=== PATIENT | female | born 1965 | race Caucasian/White ===

== ENCOUNTER 2017-07-29 23:46 | Emergency (ER) | payer OTHER ==
[~2017-07-29] VITALS: Ht 154.9 cm; Wt 102.8 kg
[2017-07-30] MEDS ORDERED: ondansetron/PF 4mg/2ml inj IV ONE (00:45)
[2017-07-30] MEDS ORDERED: normal saline 1000ML IV soln IVB ONE (00:45)
[2017-07-30] MEDS ORDERED: HYDR-565 PO (00:48)
[2017-07-30 01:20] LABS: CLARITY,URINE CLEAR (Clear); COLOR,URINE ORANGE (Yellow); PH,URINE 7.5 (4.8-8.0)
[2017-07-30 01:24] LABS: UA COLLECTION TYPE CLN CATCH MIDSTREAM
[2017-07-30 01:42] LABS: BACTERIA,URINE FEW /HPF (Neg); RBC,URINE NONE SEEN /HPF (0-2); SQUAMOUS EPITHELIAL CELL,UR FEW /LPF (FEW); WBC,URINE 0-4 /HPF (0-4)
[2017-07-30 01:50] VITALS: BP 130/75
== END 2017-07-30 01:56 | disposition home or self-care (01) ==
LOC: ER 23:47
DX: N10 Acute pyelonephritis (principal); Z87.440 Personal history of urinary (tract) infections; Z98.890 Other specified postprocedural states; Z88.2 Allergy status to sulfonamides
CPT/HCPCS: 81001; 96374; 96375; 99284; J2270; J2405; J7030

== ENCOUNTER 2017-09-21 08:55 | Inpatient (IN) | payer OTHER ==
[~2017-09-21] VITALS: Ht 154.9 cm; Wt 95.5 kg
[2017-09-21] MEDS ORDERED: morphine 8mg/ml inj. syringe IV PRN (09:15)
[2017-09-21] MEDS ORDERED: ondansetron/PF 4mg/2ml inj IV ONE (09:15)
[2017-09-21] MEDS ORDERED: ketorolac trometh. 30mg/ml inj. IV ONE (09:15)
[2017-09-21] MEDS: morphine 4 MG/ML inj SYRINge IV PRN ×3 (09:41→16:32)
[2017-09-21 10:06] LABS: BASOPHILS % (AUTO) 0.1 % (0-1); EOSINOPHILS # (AUTO) 0.4 X10'3 (0-0.9); EOSINOPHILS % (AUTO) 2.1 % (0-6); HEMOGLOBIN 14.3 g/dl (12.0-16.0); LYMPHOCYTES # (AUTO) 0.7 X10'3 (1.1-4.8); LYMPHOCYTES % (AUTO) 4.1 % (21-51); MEAN CORPUSCULAR HEMOGLOBIN 31.2 PG (27.0-31.0); MEAN CORPUSCULAR VOLUME 89.2 FL (78-98); MEAN PLATELET VOLUME 9.4 FL (7.4-10.4); MONOCYTES # (AUTO) 0.4 X10'3 (0-0.9); MONOCYTES % (AUTO) 2.5 % (2-12); NEUTROPHILS % (AUTO) 91.2 % (42-75); PLATELET COUNT 225 X10'3 (140-440); RED CELL DISTRIBUTION WIDTH 13.3 % (11.5-14.5); WHITE BLOOD COUNT 17.6 X10'3 (4.5-11.0)
[2017-09-21 10:15] LABS: PROTHROMBIN TIME 10.5 SECONDS (9.0-12.0)
[2017-09-21 10:17] LABS: HCG SERUM QL NEGATIVE
[2017-09-21 10:59] LABS: ALANINE AMINOTRANSFERASE 850 U/L (12-78); ALBUMIN 3.6 G/DL (3.4-5.0); ALKALINE PHOSPHATASE 552 IU/L (46-116); ANION GAP 16 (8-16); ASPARTATE AMINO TRANSFERASE 409 U/L (10-37); BILIRUBIN,TOTAL 3.1 MG/DL (0.1-1.0); BLOOD UREA NITROGEN 13 MG/DL (7-18); BUN/CREATININE RATIO 14.4 (6.6-38.0); CALCIUM 8.9 MG/DL (8.5-10.1); CHLORIDE 104 MMOL/L (99-107); GLUCOSE 178 MG/DL (70-104); POTASSIUM 3.8 MMOL/L (3.5-5.1); SODIUM 140 MMOL/L (135-145); TOTAL CARBON DIOXIDE 20.5 MMOL/L (24-32); TOTAL PROTEIN 7.1 G/DL (6.4-8.2); eGFR 66 ML/MIN
[2017-09-21 11:12] LABS: AMYLASE 2371 U/L (25-115)
[2017-09-21 11:23] LABS: CLARITY,URINE CLOUDY (Clear); COLOR,URINE YELLOW (Yellow); GLUCOSE, URINE NEGATIVE (Neg); KETONES,URINE >=80 mg/dl (Neg); LEUKOCYTE ESTERASE ,URINE TRACE (Neg); NITRITES, URINE NEGATIVE (Neg); OCCULT BLOOD,URINE SMALL (Neg); PROTEIN,URINE TRACE mg/dl (Neg); URINE HCG NEGATIVE (NEG)
[2017-09-21 11:23] LABS: LIPASE > 30000 U/L (73-393)
[2017-09-21 11:28] LABS: UA COLLECTION TYPE CLN CATCH MIDSTREAM
[2017-09-21 11:32] LABS: RBC,URINE 0-2 /HPF (0-2)
[2017-09-21 11:33] LABS: BACTERIA,URINE 2+ /HPF (Neg); MUCUS STRANDS MODERATE /LPF (Neg); SQUAMOUS EPITHELIAL CELL,UR MANY /LPF (FEW)
[2017-09-21 11:57] LABS: BANDS% (MANUAL) 2 % (0-10); LYMPHOCYTES % (MANUAL) 3 % (21-51); MONOCYTES % (MANUAL) 4 % (2-12); NEUTROPHILS % (MANUAL) 91 % (42-75); TOTAL CELLS COUNTED 100
[2017-09-21 11:58] LABS: PLATELET ESTIMATE NORMAL; TOXIC VACUOLATION 1+
[2017-09-21] MEDS ORDERED: HYDROmorphone inj. 0.5 MG/0.5 ML DISP.SYRIN IV PRN ×2 (13:20)
[2017-09-21] MEDS ORDERED: mag hydrox/Alum hydrox/simeth 30ml oral suspension PO PRN (13:20)
[2017-09-21] MEDS ORDERED: magnesium hydroxide 30ml (MOM) UD suspension PO PRN (13:20)
[2017-09-21] MEDS: potassium cl 20mEq in 1/2 NS 1,000 ML IV SCH (16:33)
[2017-09-21] MEDS ORDERED: NO HOME MEDS (17:47)
[2017-09-21] MEDS: docusate sod 100mg capsule PO SCH (19:58)
[2017-09-21 23:30] VITALS: BP 154/89
[2017-09-22] MEDS: potassium cl 20mEq in 1/2 NS 1,000 ML IV SCH ×3 (03:00→19:18)
[2017-09-22 05:34] LABS: BASOPHILS % (AUTO) 0.3 % (0-1); EOSINOPHILS # (AUTO) 0.3 X10'3 (0-0.9); EOSINOPHILS % (AUTO) 2.2 % (0-6); HEMATOCRIT 39.2 % (35.0-45.0); HEMOGLOBIN 13.7 g/dl (12.0-16.0); LYMPHOCYTES # (AUTO) 1.1 X10'3 (1.1-4.8); LYMPHOCYTES % (AUTO) 9.6 % (21-51); MEAN CORPUSCULAR HEMOGLOBIN 31.2 PG (27.0-31.0); MEAN CORPUSCULAR HGB CONC 34.9 % (33.0-36.5); MEAN CORPUSCULAR VOLUME 89.3 FL (78-98); MEAN PLATELET VOLUME 9.4 FL (7.4-10.4); MONOCYTES # (AUTO) 0.6 X10'3 (0-0.9); MONOCYTES % (AUTO) 5.2 % (2-12); NEUTROPHILS # (AUTO) 9.8 X10'3 (1.8-7.7); NEUTROPHILS % (AUTO) 82.7 % (42-75); PLATELET COUNT 221 X10'3 (140-440); RED BLOOD COUNT 4.39 X10'6 (4.20-5.60); RED CELL DISTRIBUTION WIDTH 13.2 % (11.5-14.5); WHITE BLOOD COUNT 11.9 X10'3 (4.5-11.0)
[2017-09-22 05:56] LABS: ALANINE AMINOTRANSFERASE 651 U/L (12-78); ALBUMIN 3.2 G/DL (3.4-5.0); ALBUMIN/GLOBULIN RATIO 0.9 (1.1-1.5); ALKALINE PHOSPHATASE 502 IU/L (46-116); ANION GAP 11 (8-16); ASPARTATE AMINO TRANSFERASE 193 U/L (10-37); BILIRUBIN,TOTAL 2.2 MG/DL (0.1-1.0); BLOOD UREA NITROGEN 10 MG/DL (7-18); CALCIUM 8.3 MG/DL (8.5-10.1); CHLORIDE 105 MMOL/L (99-107); CREATININE 0.77 MG/DL (0.40-0.90); GLUCOSE 86 MG/DL (70-104); POTASSIUM 4.2 MMOL/L (3.5-5.1); SODIUM 142 MMOL/L (135-145); TOTAL CARBON DIOXIDE 26.4 MMOL/L (24-32); TOTAL PROTEIN 6.6 G/DL (6.4-8.2); eGFR 79 ML/MIN
[2017-09-22 06:34] LABS: LIPASE 12246 U/L (73-393)
[2017-09-22 07:00] VITALS: BP 142/89
[2017-09-22] MEDS: docusate sod 100mg capsule PO SCH ×2 (07:42→20:00)
[2017-09-22] MEDS: enoxaparin 40mg/0.4ml syringe SUBCUT SCH (09:06)
[2017-09-22] MEDS: ondansetron/PF 4mg/2ml inj IV PRN ×2 (11:15→20:31)
[2017-09-22] MEDS: morphine 4 MG/ML inj SYRINge IV PRN ×4 (14:03→22:40)
[2017-09-22 20:00] VITALS: BP 149/88
[2017-09-22] MEDS: diphenhydrAMINE 50 mg/ml inj IV PRN (20:27)
[2017-09-22 23:00] VITALS: BP 146/89
[2017-09-23] MEDS: potassium cl 20mEq in 1/2 NS 1,000 ML IV SCH ×3 (01:04→23:20)
[2017-09-23] MEDS: acetaminophen 325mg tablet PO PRN ×3 (01:07→18:22)
[2017-09-23 04:00] VITALS: BP 124/75
[2017-09-23 06:18] LABS: BASOPHILS % (AUTO) 0 % (0-1); EOSINOPHILS % (AUTO) 0.1 % (0-6); HEMATOCRIT 39.2 % (35.0-45.0); HEMOGLOBIN 13.6 g/dl (12.0-16.0); MEAN CORPUSCULAR HEMOGLOBIN 30.9 PG (27.0-31.0); MEAN CORPUSCULAR HGB CONC 34.6 % (33.0-36.5); MEAN CORPUSCULAR VOLUME 89.2 FL (78-98); MEAN PLATELET VOLUME 9.9 FL (7.4-10.4); MONOCYTES % (AUTO) 5.8 % (2-12); NEUTROPHILS # (AUTO) 14.9 X10'3 (1.8-7.7); NEUTROPHILS % (AUTO) 88.1 % (42-75); PLATELET COUNT 223 X10'3 (140-440); RED CELL DISTRIBUTION WIDTH 13.3 % (11.5-14.5); WHITE BLOOD COUNT 16.9 X10'3 (4.5-11.0)
[2017-09-23 06:41] LABS: ALANINE AMINOTRANSFERASE 534 U/L (12-78); ALBUMIN/GLOBULIN RATIO 0.9 (1.1-1.5); ALKALINE PHOSPHATASE 541 IU/L (46-116); ANION GAP 12 (8-16); ASPARTATE AMINO TRANSFERASE 154 U/L (10-37); BILIRUBIN,TOTAL 6.6 MG/DL (0.1-1.0); BLOOD UREA NITROGEN 7 MG/DL (7-18); BUN/CREATININE RATIO 11.3 (6.6-38.0); CALCIUM 8.5 MG/DL (8.5-10.1); CHLORIDE 102 MMOL/L (99-107); CREATININE 0.62 MG/DL (0.40-0.90); GLUCOSE 70 MG/DL (70-104); POTASSIUM 4.4 MMOL/L (3.5-5.1); SODIUM 138 MMOL/L (135-145); TOTAL CARBON DIOXIDE 23.8 MMOL/L (24-32); TOTAL PROTEIN 6.5 G/DL (6.4-8.2); eGFR > 90 ML/MIN
[2017-09-23 07:01] LABS: LIPASE 5701 U/L (73-393)
[2017-09-23 08:00] VITALS: BP 143/82
[2017-09-23] MEDS: enoxaparin 40mg/0.4ml syringe SUBCUT SCH (08:00)
[2017-09-23] MEDS: docusate sod 100mg capsule PO SCH ×2 (08:00→20:00)
[2017-09-23 10:26] VITALS: BP 148/86
[2017-09-23 11:00] VITALS: BP 129/80
[2017-09-23 12:51] VITALS: BP 142/88
[2017-09-23] MEDS: ondansetron/PF 4mg/2ml inj IV PRN (17:43)
[2017-09-23] MEDS: morphine 4 MG/ML inj SYRINge IV PRN ×2 (18:22→23:31)
[2017-09-23 20:00] VITALS: BP 128/84
[2017-09-23] MEDS: diphenhydrAMINE 50 mg/ml inj IV PRN (23:30)
[2017-09-23] MEDS: piperacillin/tazo 3.375gm/50ml 50 ML IV SCH (23:31)
[2017-09-24] VITALS (12 sets, daily range): BP systolic 110–157; BP diastolic 73–97
[2017-09-24 05:44] LABS: BASOPHILS # (AUTO) 0.1 X10'3 (0-0.2); BASOPHILS % (AUTO) 0.5 % (0-1); EOSINOPHILS # (AUTO) 0.2 X10'3 (0-0.9); EOSINOPHILS % (AUTO) 1.1 % (0-6); HEMATOCRIT 40.5 % (35.0-45.0); HEMOGLOBIN 13.9 g/dl (12.0-16.0); LYMPHOCYTES % (AUTO) 6.2 % (21-51); MEAN CORPUSCULAR HEMOGLOBIN 30.6 PG (27.0-31.0); MEAN CORPUSCULAR HGB CONC 34.2 % (33.0-36.5); MEAN CORPUSCULAR VOLUME 89.3 FL (78-98); MEAN PLATELET VOLUME 9.6 FL (7.4-10.4); MONOCYTES # (AUTO) 1.1 X10'3 (0-0.9); MONOCYTES % (AUTO) 6.9 % (2-12); NEUTROPHILS # (AUTO) 13.7 X10'3 (1.8-7.7); NEUTROPHILS % (AUTO) 85.3 % (42-75); PLATELET COUNT 237 X10'3 (140-440); RED BLOOD COUNT 4.54 X10'6 (4.20-5.60); RED CELL DISTRIBUTION WIDTH 13.5 % (11.5-14.5)
[2017-09-24] MEDS ORDERED: fentaNYL/PF 50MCG/1 ML 2ML syringe ONE (06:18)
[2017-09-24] MEDS ORDERED: MIDAZolam 5mg/ml 2ml vial ONE (06:18)
[2017-09-24] MEDS ORDERED: diphenhydrAMINE 50 mg/ml inj ONE (06:18)
[2017-09-24] MEDS ORDERED: meperidine/PF 100mg/ml syringe ONE (06:18)
[2017-09-24] MEDS ORDERED: glucagon, human recombinant 1mg kit ONE (06:19)
[2017-09-24] MEDS ORDERED: iohexol 300 MG/1 ML 50ml polymer ONE (06:19)
[2017-09-24] MEDS ORDERED: LIDOcaine Viscous 15ml cup ONE (06:19)
[2017-09-24] MEDS ORDERED: levoFLOXACIN-Levaquin 500mg/D5 0 ML IV ONE (06:19)
[2017-09-24 06:22] LABS: ALANINE AMINOTRANSFERASE 483 U/L (12-78); ALBUMIN/GLOBULIN RATIO 0.7 (1.1-1.5); ALKALINE PHOSPHATASE 513 IU/L (46-116); ANION GAP 13 (8-16); ASPARTATE AMINO TRANSFERASE 150 U/L (10-37); BILIRUBIN,TOTAL 3.9 MG/DL (0.1-1.0); BLOOD UREA NITROGEN 6 MG/DL (7-18); BUN/CREATININE RATIO 9.1 (6.6-38.0); CALCIUM 8.7 MG/DL (8.5-10.1); CHLORIDE 100 MMOL/L (99-107); CREATININE 0.66 MG/DL (0.40-0.90); GLUCOSE 77 MG/DL (70-104); POTASSIUM 4.7 MMOL/L (3.5-5.1); SODIUM 136 MMOL/L (135-145); TOTAL CARBON DIOXIDE 22.9 MMOL/L (24-32); TOTAL PROTEIN 7.1 G/DL (6.4-8.2); eGFR > 90 ML/MIN
[2017-09-24 06:24] LABS: LIPASE 1864 U/L (73-393)
[2017-09-24] MEDS: docusate sod 100mg capsule PO SCH ×2 (06:25→19:22)
[2017-09-24] MEDS ORDERED: normal saline 1000ml 1,000 ML IV SCH (06:57)
[2017-09-24] MEDS ORDERED: simethicone 40mg/0.6ml oral drops 30ml MC ONE (07:00)
[2017-09-24] MEDS ORDERED: fentaNYL/PF 50MCG/1 ML 2ML syringe IV PRN (07:00)
[2017-09-24] MEDS ORDERED: LIDOcaine Viscous 15ml cup PO ONE (07:00)
[2017-09-24] MEDS ORDERED: meperidine/PF 100mg/ml syringe IV PRN (07:00)
[2017-09-24] MEDS ORDERED: diphenhydrAMINE 50 mg/ml inj IV ONE (07:00)
[2017-09-24] MEDS ORDERED: glucagon, human recombinant 1mg kit IV PRN (07:00)
[2017-09-24] MEDS ORDERED: iohexol 300 MG/1 ML 50ml polymer IV ONE (07:00)
[2017-09-24] MEDS ORDERED: MIDAZolam 5mg/5ml vial IV PRN (07:00)
[2017-09-24] MEDS: piperacillin/tazo 3.375gm/50ml 50 ML IV SCH ×2 (08:56→16:15)
[2017-09-24] MEDS: enoxaparin 40mg/0.4ml syringe SUBCUT SCH (08:58)
[2017-09-24] MEDS: potassium cl 20mEq in 1/2 NS 1,000 ML IV SCH (14:00)
[2017-09-25] VITALS: BP 124/76
[2017-09-25] MEDS: potassium cl 20mEq in 1/2 NS 1,000 ML IV SCH ×4 (00:21→22:32)
[2017-09-25] MEDS: piperacillin/tazo 3.375gm/50ml 50 ML IV SCH ×4 (00:21→23:51)
[2017-09-25] MEDS: acetaminophen 325mg tablet PO PRN (03:01)
[2017-09-25 05:23] LABS: BASOPHILS % (AUTO) 0.2 % (0-1); EOSINOPHILS # (AUTO) 0.2 X10'3 (0-0.9); EOSINOPHILS % (AUTO) 1.9 % (0-6); HEMATOCRIT 38.4 % (35.0-45.0); HEMOGLOBIN 13.2 g/dl (12.0-16.0); LYMPHOCYTES # (AUTO) 1.1 X10'3 (1.1-4.8); LYMPHOCYTES % (AUTO) 9.8 % (21-51); MEAN CORPUSCULAR HEMOGLOBIN 30.9 PG (27.0-31.0); MEAN CORPUSCULAR HGB CONC 34.4 % (33.0-36.5); MEAN CORPUSCULAR VOLUME 89.9 FL (78-98); MEAN PLATELET VOLUME 9.6 FL (7.4-10.4); MONOCYTES # (AUTO) 0.9 X10'3 (0-0.9); MONOCYTES % (AUTO) 8.1 % (2-12); NEUTROPHILS # (AUTO) 8.7 X10'3 (1.8-7.7); PLATELET COUNT 246 X10'3 (140-440); RED BLOOD COUNT 4.27 X10'6 (4.20-5.60); RED CELL DISTRIBUTION WIDTH 13.2 % (11.5-14.5); WHITE BLOOD COUNT 10.9 X10'3 (4.5-11.0)
[2017-09-25 05:53] LABS: ALANINE AMINOTRANSFERASE 409 U/L (12-78); ALBUMIN 2.6 G/DL (3.4-5.0); ALBUMIN/GLOBULIN RATIO 0.7 (1.1-1.5); ALKALINE PHOSPHATASE 410 IU/L (46-116); ANION GAP 11 (8-16); ASPARTATE AMINO TRANSFERASE 139 U/L (10-37); BILIRUBIN,TOTAL 2.6 MG/DL (0.1-1.0); BLOOD UREA NITROGEN 5 MG/DL (7-18); BUN/CREATININE RATIO 7.7 (6.6-38.0); CALCIUM 8.4 MG/DL (8.5-10.1); CHLORIDE 103 MMOL/L (99-107); CREATININE 0.65 MG/DL (0.40-0.90); GLUCOSE 124 MG/DL (70-104); LIPASE 862 U/L (73-393); SODIUM 139 MMOL/L (135-145); TOTAL CARBON DIOXIDE 25.2 MMOL/L (24-32); TOTAL PROTEIN 6.4 G/DL (6.4-8.2); eGFR > 90 ML/MIN
[2017-09-25 07:30] VITALS: BP 123/89
[2017-09-25] MEDS: enoxaparin 40mg/0.4ml syringe SUBCUT SCH (08:00)
[2017-09-25] MEDS: docusate sod 100mg capsule PO SCH ×2 (08:21→19:14)
[2017-09-25] MEDS: ondansetron/PF 4mg/2ml inj IV PRN (11:12)
[2017-09-25 12:03] VITALS: BP 134/88
[2017-09-25 18:00] LABS: PRE OP PROTIME 10.5 SECONDS (9.0-12.0)
[2017-09-25 19:10] VITALS: BP 135/81
[2017-09-26] VITALS (19 sets, daily range): BP systolic 122–157; BP diastolic 65–97
[2017-09-26 04:49] LABS: BASOPHILS % (AUTO) 0.3 % (0-1); EOSINOPHILS # (AUTO) 0.2 X10'3 (0-0.9); HEMATOCRIT 38.6 % (35.0-45.0); HEMOGLOBIN 13.3 g/dl (12.0-16.0); LYMPHOCYTES # (AUTO) 1.5 X10'3 (1.1-4.8); LYMPHOCYTES % (AUTO) 13.2 % (21-51); MEAN CORPUSCULAR HGB CONC 34.5 % (33.0-36.5); MEAN CORPUSCULAR VOLUME 89.9 FL (78-98); MEAN PLATELET VOLUME 9.7 FL (7.4-10.4); MONOCYTES # (AUTO) 0.9 X10'3 (0-0.9); MONOCYTES % (AUTO) 7.8 % (2-12); NEUTROPHILS # (AUTO) 8.6 X10'3 (1.8-7.7); NEUTROPHILS % (AUTO) 76.7 % (42-75); PLATELET COUNT 257 X10'3 (140-440); RED BLOOD COUNT 4.29 X10'6 (4.20-5.60); RED CELL DISTRIBUTION WIDTH 13.3 % (11.5-14.5); WHITE BLOOD COUNT 11.2 X10'3 (4.5-11.0)
[2017-09-26 05:21] LABS: ALANINE AMINOTRANSFERASE 454 U/L (12-78); ALBUMIN 2.6 G/DL (3.4-5.0); ALBUMIN/GLOBULIN RATIO 0.7 (1.1-1.5); ALKALINE PHOSPHATASE 365 IU/L (46-116); ANION GAP 9 (8-16); ASPARTATE AMINO TRANSFERASE 184 U/L (10-37); BILIRUBIN,TOTAL 1.6 MG/DL (0.1-1.0); BLOOD UREA NITROGEN 4 MG/DL (7-18); BUN/CREATININE RATIO 5.8 (6.6-38.0); CALCIUM 8.9 MG/DL (8.5-10.1); CHLORIDE 103 MMOL/L (99-107); CREATININE 0.69 MG/DL (0.40-0.90); GLUCOSE 113 MG/DL (70-104); LIPASE 564 U/L (73-393); SODIUM 139 MMOL/L (135-145); TOTAL CARBON DIOXIDE 26.7 MMOL/L (24-32); TOTAL PROTEIN 6.6 G/DL (6.4-8.2); eGFR 90 ML/MIN
[2017-09-26] MEDS: docusate sod 100mg capsule PO SCH ×2 (07:19→21:26)
[2017-09-26] MEDS: enoxaparin 40mg/0.4ml syringe SUBCUT SCH (07:19)
[2017-09-26] MEDS: piperacillin/tazo 3.375gm/50ml 50 ML IV SCH ×2 (07:25→15:38)
[2017-09-26] MEDS: potassium cl 20mEq in 1/2 NS 1,000 ML IV SCH ×2 (07:25→15:38)
[2017-09-26] MEDS ORDERED: BUPIVAcaine/PF 2.5 mg/ml (0.25%) 30ml vial ONE (10:30)
[2017-09-26] MEDS ORDERED: ceFAZolin 1000mg inj ONE (10:30)
[2017-09-26] MEDS ORDERED: midazolam 2 mg/2 ml injection ONE (10:59)
[2017-09-26] MEDS ORDERED: fentaNYL/PF 50MCG/1 ML 2ML syringe ONE (10:59)
[2017-09-26] MEDS ORDERED: propofol inj 20 ML IV ONE (11:00)
[2017-09-26] MEDS ORDERED: rocuronium 10mg/ml inj IV ONE (11:00)
[2017-09-26] MEDS ORDERED: ringers solution, lacted 1,000 ML IV SCH (11:34)
[2017-09-26] MEDS ORDERED: proCHLORperazine 10 MG/2 ml inj IV PRN (11:35)
[2017-09-26] MEDS ORDERED: ondansetron/PF 4mg/2ml inj IV PRN (11:35)
[2017-09-26] MEDS ORDERED: morphine 4 MG/ML inj SYRINge IV PRN ×2 (11:35)
[2017-09-26] MEDS ORDERED: meperidine/PF 50mg/ml syringe IV PRN ×3 (11:35)
[2017-09-26] MEDS ORDERED: glycopyrrolate 0.2mg/ml inj ONE (11:58)
[2017-09-26] MEDS ORDERED: neostigmine methylsulfate 1 MG/ML 10ml vial ONE (11:58)
[2017-09-26] MEDS ORDERED: HYDROcodone/acetaminophen 10/325mg tab PO PRN (12:15)
[2017-09-26] MEDS: morphine 4 MG/ML inj SYRINge IV PRN ×3 (15:39→21:25)
[2017-09-26] MEDS: lactobacillus rhamnosus 10,000 MMU CELLS/CAPSULE PO SCH (21:26)
[2017-09-27] VITALS: BP 135/76
[2017-09-27] MEDS: traMADol 50MG tablet PO PRN ×4 (00:14→20:32)
[2017-09-27] MEDS: diphenhydrAMINE 50 mg/ml inj IV PRN (00:15)
[2017-09-27] MEDS: piperacillin/tazo 3.375gm/50ml 50 ML IV SCH ×3 (00:16→15:09)
[2017-09-27 01:50] VITALS: BP 135/76
[2017-09-27] MEDS: potassium cl 20mEq in 1/2 NS 1,000 ML IV SCH ×2 (05:31→17:05)
[2017-09-27 07:20] VITALS: BP 127/78
[2017-09-27] MEDS: lactobacillus rhamnosus 10,000 MMU CELLS/CAPSULE PO SCH ×2 (07:37→20:33)
[2017-09-27] MEDS: enoxaparin 40mg/0.4ml syringe SUBCUT SCH (07:37)
[2017-09-27] MEDS: docusate sod 100mg capsule PO SCH ×3 (07:37→20:34)
[2017-09-27 12:04] VITALS: BP 115/74
[2017-09-27 18:00] VITALS: BP 144/82
[2017-09-27] MEDS: Protein Smoothie (high protein) 240ml (8oz) cup PO SCH (18:00)
[2017-09-27] MEDS: levoFLOXACIN-Levaquin 500mg/D5 100 ML IV SCH (20:50)
[2017-09-28] VITALS: BP 128/80
[2017-09-28 01:47] VITALS: BP 128/80
[2017-09-28] MEDS: potassium cl 20mEq in 1/2 NS 1,000 ML IV SCH (05:19)
[2017-09-28 06:24] LABS: ALANINE AMINOTRANSFERASE 475 U/L (12-78); ALBUMIN 2.6 G/DL (3.4-5.0); ALBUMIN/GLOBULIN RATIO 0.6 (1.1-1.5); ALKALINE PHOSPHATASE 277 IU/L (46-116); ANION GAP 8 (8-16); ASPARTATE AMINO TRANSFERASE 154 U/L (10-37); BILIRUBIN,TOTAL 1.1 MG/DL (0.1-1.0); BLOOD UREA NITROGEN 3 MG/DL (7-18); BUN/CREATININE RATIO 4.4 (6.6-38.0); CALCIUM 8.9 MG/DL (8.5-10.1); CHLORIDE 102 MMOL/L (99-107); CREATININE 0.68 MG/DL (0.40-0.90); GLUCOSE 116 MG/DL (70-104); POTASSIUM 4.3 MMOL/L (3.5-5.1); SODIUM 137 MMOL/L (135-145); TOTAL CARBON DIOXIDE 27.4 MMOL/L (24-32); TOTAL PROTEIN 6.8 G/DL (6.4-8.2); eGFR > 90 ML/MIN
[2017-09-28 07:14] VITALS: BP 126/76
[2017-09-28] MEDS: enoxaparin 40mg/0.4ml syringe SUBCUT SCH (08:00)
[2017-09-28] MEDS: docusate sod 100mg capsule PO SCH (08:00)
[2017-09-28] MEDS: Protein Smoothie (high protein) 240ml (8oz) cup PO SCH (08:00)
[2017-09-28] MEDS: lactobacillus rhamnosus 10,000 MMU CELLS/CAPSULE PO SCH (09:01)
[2017-09-28] MEDS: levoFLOXACIN-Levaquin 500mg/D5 100 ML IV SCH (09:02)
[2017-09-28] MEDS ORDERED: TRAM50TA2 PO (10:47)
[2017-09-28] MEDS ORDERED: LEVO500T2 PO (10:47)
[2017-09-28] MEDS ORDERED: DOCU-28 PO (10:47)
[2017-09-28 11:00] VITALS: BP 133/87
== END 2017-09-28 12:00 | disposition home or self-care (01) | DRG 417 ==
LOC: ER 08:56 → ED HOLD 13:18 → SUR 3N 23:29
PROVIDERS: ADMIT Internal Medicine; ATTEND Internal Medicine
PROC: 0F798ZZ Dilation of Common Bile Duct, Via Natural or Artificial Opening Endoscopic (ICD-10-PCS; 2017-09-24)
PROC: BF101ZZ Fluoroscopy of Bile Ducts using Low Osmolar Contrast (ICD-10-PCS; 2017-09-24)
PROC: 0FT44ZZ Resection of Gallbladder, Percutaneous Endoscopic Approach (ICD-10-PCS; principal; 2017-09-26 11:03)
DX: K80.21 Calculus of gallbladder without cholecystitis with obstruction (principal); K85.10 Biliary acute pancreatitis without necrosis or infection; K83.0 Cholangitis; E66.9 Obesity, unspecified; K44.9 Diaphragmatic hernia without obstruction or gangrene; K57.50 Diverticulosis of both small and large intestine without perforation or abscess without bleeding; M43.16 Spondylolisthesis, lumbar region; Z88.2 Allergy status to sulfonamides; Z87.440 Personal history of urinary (tract) infections; Z68.39 Body mass index [BMI] 39.0-39.9, adult
CPT/HCPCS: 36415; 74176; 74181; 76700; 80053; 81001; 81025; 82150; 83690; 84703; 85025; 85610; 85730; 87070; 96374; 96375; 99285; A4620; A6251; A6258; A6402; A7000; G0500; J0690; J1200; J1610; J1650; J1885; J1956; J2175; J2250; J2270; J2405; J2543; J2704; J2710; J3010; J3490; J7030; J7120; Q9967

== ENCOUNTER 2021-03-12 08:55 | Emergency (ER) | payer OTHER ==
[~2021-03-12] VITALS: Ht 172.7 cm; Wt 102.3 kg
[~2021-03-12 08:55] MED LIST: DOCU-28 PO; TRAM50TA2 PO
[2021-03-12] MEDS ORDERED: ondansetron 4mg rapidly disintigrating tab PO ONE ×2 (10:25→10:44)
[2021-03-12] MEDS ORDERED: DEXAMETHASONE 6 MG TABLET PO ONE (12:30)
[2021-03-12] MEDS ORDERED: DEXAMETHASONE 6 MG TABLET PO SCH (12:30)
[2021-03-12] MEDS ORDERED: normal saline 1000ml 1,000 ML IV ONE (13:05)
[2021-03-12] MEDS ORDERED: CASIRIVIMAB (REGN10933) 1332MG 600 MG, IMDEVIMAB (REGN10987) 1332mg 600 MG in normal sa... IV ONE (13:55)
[2021-03-12] MEDS ORDERED: DEXA6TAB6 PO (15:46)
[2021-03-12] MEDS ORDERED: ALBU8HFA PO (15:46)
[2021-03-12] MEDS ORDERED: BENZ-16 PO (15:46)
[2021-03-12 17:20] VITALS: BP 126/82
== END 2021-03-12 17:29 | disposition home or self-care (01) ==
LOC: ER 08:55
DX: U07.1 COVID-19 (principal); J12.82 Pneumonia due to coronavirus disease 2019; Z88.2 Allergy status to sulfonamides; Z79.899 Other long term (current) drug therapy; Z87.440 Personal history of urinary (tract) infections
CPT/HCPCS: 71045; 87635; 99284; C9803; M0243; Q0243; J8540